=== PATIENT | female | born 1995 | race Caucasian/White ===

== ENCOUNTER 2024-07-29 10:53 | Inpatient (IN) | payer OTHER, SELFPAY ==
[2024-07-29] VITALS (37 sets, daily range): BP systolic 105–132; BP diastolic 61–84; PULSE 60–95; RESP 15–16; TEMP 36.7–37.1; O2SAT 87–100; BMI 43.2
[2024-07-29 10:51] LABS: ROM Internal Control Test YES-OK TO RESULT pt. (Internal QC)
[2024-07-29 10:52] LABS: ROM Patient Test POSITIVE (Negative); Record Kit Lot#, ROM+ K3294
[2024-07-29] MEDS: Lactated Ringers 1,000 ML 50 ML IV (11:50)
[2024-07-29 11:54] LABS: Bedside Glucose 71 mg/dL (74-106)
[2024-07-29 12:17] LABS: Absolute Lymphocyte Count 1.23 X10^3/uL (0.83-4.51); Absolute Neutrophil Count 4.6 X10^3/uL (2.0-7.7); Basophil# 0.04 X10^3/uL; Basophil% 0.6 % (0-1); Eosinophil# 0.03 X10^3/uL; Eosinophils% 0.5 % (0-5); Hematocrit 36.3 % (37-47); Hemoglobin 12.4 g/dL (12.0-15.0); Lymphocyte # 1.23 X10^3/ul (0.83-4.51); Lymphocyte % 19.2 % (19-41); Mean Corp Hgb Conc 34.2 g/dL (32-36); Mean Corpuscular Hgb 32.1 pg (27.0-32.0); Mean Platelet Vol. 11.2 fl (6.2-12.0); Monocyte# 0.51 X10^3/uL; NRBC Flagged by Analyzer 0 % (0-5); Neutrophil # 4.57 X10^3/uL (2.7-7.7); Neutrophil % 71.2 % (47-70); Platelet Count 140 K/mm3 (150-450); RBC Distribution Width CV 14.6 % (11.6-14.6); Red Blood Count 3.86 M/mm3 (4.2-5.4); White Blood Count 6.4 K/mm3 (4.4-11.0)
[2024-07-29] MEDS: Oxytocin 15 Units/NS 250ml 15 UNITS/250 ML IV.SOLN 2 UNITS IV (12:40)
[2024-07-29 13:14] LABS: Bedside Glucose 86 mg/dL (74-106)
[2024-07-29 13:21] LABS: Syphilis Antibodies Nonreactive (Nonreactive)
[2024-07-29 16:56] LABS: Bedside Glucose 73 mg/dL (74-106)
--- NOTE | 2024-07-29 17:13 | PCM.HP.OB ---
HPI - General General Date of Admission: 07/29/24 Date of Service: 07/29/24 Chief Complaint: SROM HPI Narrative KENDRA SWEET, is a 28 F who presents with SROM at 2300 07/28/24. Clear. Few contractions. GDM diet controlled. Fasting 86. 1 cm/70/-2 Maternal Data Information Final ERICA: 08/09/24 Gestational age: 38+4 PFSH PFSH Medical History HPV (human papilloma virus) infection Gestational diabetes Home Medications ?Medication ?Instructions ?Recorded ?Last Taken ?Type aspirin 81 mg chewable tablet (St 1 tab PO DAILY 07/29/24 07/28/24 21:00 History Juan M Aspirin) 1 TAB calcium phosphate,dibasic 77 tab PO 07/29/24 07/28/24 21:00 History mg-vitamin D3 400 unit tablet 1 TAB vits no.130-ferrous fum tab 07/29/24 07/28/24 21:00 History 27 mg iron-folic acid 800 mcg 1 TAB tablet ( Vitamin) Allergy/AdvReac Type Severity Reaction Status Date / Time No Known Allergies Allergy Verified 07/29/24 10:19 Social History Smoking Status: Never smoker History 1 Elective abortions Hx Para 0 Spontaneous abortions Hx # Term Pregnancies Ectopic pregnancies Hx # Pregnancies Multiple births # of living children NST FHR Rate Baby A Baseline: 145 Variability:: Moderate Accelerations:: 15 x 15 Decelerations:: None NST Reactive:: Yes FHR Category:: Category I ROS Constitutional Constitutional: Denies fatigue, fever(s) or malaise Eyes Eyes: Denies change in vision ENT HEENT: Denies dizziness or headache(s) Cardiovascular Cardiovascular: Denies chest pain, dyspnea or lightheadedness Respiratory/Chest Respiratory/Chest: Denies cough or dyspnea Gastrointestinal Gastrointestinal: Denies change in bowel habits Genitourinary Genitourinary: Denies burning urination or genital lesions Integumentary Integumentary: Denies rash Neurologic Neurologic: Denies confusion, dizziness, headache(s), numbness or weakness Vital Signs Vital Signs Vital Signs: 07/29/24 10:25 07/29/24 10:25 07/29/24 10:25 Temperature Temperature Source Temporal Pulse Rate 80 Respiratory Rate Blood Pressure 122/83 H BP Systolic 122 BP Diastolic 83 Pulse Ox 07/29/24 10:25 07/29/24 10:25 07/29/24 14:43 Temperature 98.4 F Temperature Source Temporal Pulse Rate Respiratory Rate 16 Blood Pressure BP Systolic BP Diastolic Pulse Ox 07/29/24 14:43 07/29/24 14:43 07/29/24 14:44 Temperature 98.7 F Temperature Source Pulse Rate Respiratory Rate 16 Blood Pressure 123/72 H BP Systolic 123 BP Diastolic 72 Pulse Ox 07/29/24 14:44 07/29/24 17:10 07/29/24 17:10 Temperature Temperature Source Temporal Pulse Rate 67 Respiratory Rate 16 Blood Pressure BP Systolic BP Diastolic Pulse Ox 07/29/24 17:10 07/29/24 17:11 07/29/24 17:11 Temperature 98.1 F Temperature Source Pulse Rate 74 Respiratory Rate Blood Pressure BP Systolic BP Diastolic Pulse Ox 97 Weight Weight: 110.7 kg Body Mass Index (BMI) 43.2 Physical Exam Const alert and no apparent distress General Appearance: cooperative HEENT normocephalic Resp normal respiratory effort Cardio regular rate GI soft to palpation GI Narrative: gravid, nontender, appropriate for gestational age Extremity no calf tenderness General Extremity: edema Skin no wounds Rashes: No rashes noted Psych activity/motor behavior normal Labs Labs Labs: Blood Type A POSITIVE Antibody Screen NEGATIVE Hct 36.3 % (37-47) L Hgb 12.4 g/dL (12.0-15.0) Syphilis Total Ab Nonreactive (Nonreactive) Assessment & Plan (1) PROM (premature rupture of membranes): (2) GDM, class A1: (3) 38 weeks gestation of : PLAN: Plan Pitocin per protocol
[2024-07-29] MEDS: Lactated Ringers 1,000 ML 999 ML IV (17:36)
[2024-07-29] MEDS: fentaNYL-bupivacaine (epidural) 100 ML BAG EPIDURAL ×2 (18:30→22:40)
[2024-07-29 20:22] LABS: Bedside Glucose 81 mg/dL (74-106)
[2024-07-29 23:57] LABS: Bedside Glucose 78 mg/dL (74-106)
[2024-07-30] VITALS (44 sets, daily range): BP systolic 107–135; BP diastolic 65–85; PULSE 81–110; RESP 15–16; TEMP 36.4–36.8; O2SAT 84–100
[2024-07-30 00:56] LABS: Bedside Glucose 90 mg/dL (74-106)
--- NOTE | 2024-07-30 01:39 | OB.VAGDELI_ITS ---
Assessment & Plan (1) (spontaneous vaginal delivery): (2) GDM, class A1: Maternal Data Information Final ERICA: 07/30/24 Gestational age: 38+4 Vaginal Delivery Maternal Presentation Maternal Presentation: Spontaneous Rupture of Membranes Type of Induction: Pitocin Vaginal Delivery Information Procedure Performed: Spontaneous Vaginal Delivery Surgeon/Practitioner: Marquita Duron Date of Procedure: 07/30/24 Pre-Procedure Diagnosis: PROM Post-Procedure Diagnosis: Type of anesthesia: Epidural Estimated Blood Loss: 250 cc Time of Delivery: 01:14 Findings Description of procedure: Presented with SROM at 1 cm. Clear fluid. Pitocin augmentation. Once complete she pushed for approximately 2 hours to deliver JORDAN. There was a cord around the neck very loose. The anterior and posterior shoulders delivered easily followed by the body. The infant cried upon delivery and placed on maternal abdomen. The cord was clamp and cut at one minute. The placenta delivered with gentle traction. A second degree laceration was repaired with 2-0 Vicryl. All sponge, needle and instrument counts were correct Presentation: Vertex and JORDAN Amniotic Membrane Rupture Type: Spontaneous Amniotic Fluid Description: Other (terminal mec) Placental Delivery Description: Spontaneous Placenta Disposition: [facility] Specimen collected: No Cord Vessel Description: 3 Vessels Cord Entanglement: Around neck x 1, loose Nuchal Cord Compression: Without compression A Gender: Female (1 minute): 8 (5 minute): 9 Delayed Cord Clamping: Yes Executive Administrative Assistant rail car loader: No Post Vaginal Deli Medications given after delivery: IV Pitocin Episiotomy Description: None Laceration: Midline and 2nd degree Complication Complications: No
[2024-07-30] MEDS: Oxytocin 15 Units/NS 250ml 15 UNITS/250 ML IV.SOLN 83 UNITS IV (01:45)
[2024-07-30 02:46] LABS: Bedside Glucose 93 mg/dL (74-106)
[2024-07-30] MEDS: Ondansetron 4 MG/2 ML Vial IV (04:15)
[2024-07-30] MEDS: 0.9% Saline Lock 10 ML Syringe IV (04:15)
--- NOTE | 2024-07-30 04:50 | NURSING ---
pt fainted on toilet. staff assist button was hit and help came. pt awaoke when ammonia packet put up to nose. pt back in bed eating crackers and drinking sprite.
[2024-07-30 08:26] LABS: Bedside Glucose 123 mg/dL (74-106)
[2024-07-30] MEDS: Acetaminophen 500 MG Tablet 1000 MG PO ×2 (09:30→20:05)
[2024-07-30] MEDS: Ibuprofen 600 MG Tablet PO (11:48)
[2024-07-31 02:12] VITALS: BP 110/66; PULSE 76; RESP 16; TEMP 37
[2024-07-31 05:38] LABS: Bedside Glucose 73 mg/dL (74-106)
--- NOTE | 2024-07-31 06:32 | PCM.PN.BLA ---
Progress Note pain well controlled, average lochia, no N/V Physical Exam Const alert and no apparent distress Narrative: Fundus firm, below umbilicus. Assessment & Plan Assessment/Plan (1) (spontaneous vaginal delivery): PLAN: PPD #1 doing well ok for dc/ home today if ok w/ peds
--- NOTE | 2024-07-31 06:33 | PCM.DC ---
Discharge Instructions Diet Discharge Diet: No restrictions DC O2, CPAP, BIPAP needs Home O2 Discharge instructions: No Dressing / Incision May resume sexual activity in: 6 weeks Follow Up Care Please Follow Up With: Marquita Duron MD When: Follow up with our office in 1-2 and 6 weeks or as needed. [phone] Call or send a [employer] message as needed or to schedule Test Results: Test results from this visit will be discussed in further detail at your follow-up appointment, if applicable. Discharge Plan Admission Admit Date/Time: 07/29/24 10:53 Primary Reason for Your Visit: Vaginal delivery Attending Provider: Marquita Duron Primary Care Provider: Care Physician,No Primary Discharge Orders/Prescriptions Prescriptions: Continued Vitamin 27 mg iron- 800 mcg tablet calcium phos,dibas-vitamin D3 77-400 mg-unit tablet PO Discontinued aspirin [St Juan M Aspirin] 81 mg tablet,chewable 1 tab PO DAILY Referrals / Follow Up: Care Physician,No Primary [Primary Care Provider] - Disposition Disposition (needs filled in before D/C Order can be placed): Home, Self Care
[2024-07-31 08:35] VITALS: BP 119/71; PULSE 90
[2024-07-31 10:00] VITALS: BP 119/71; PULSE 90; RESP 16; TEMP 36.7
== END 2024-07-31 13:20 | disposition home or self-care (01) | DRG 807 ==
LOC: WPOUT 11:02 → WP 11:02
PROVIDERS: Admitting Provider Obstetrics & Gynecology; Referring Provider Obstetrics & Gynecology; Visit Provider Obstetrics & Gynecology
DX: O42.02 Full-term premature rupture of membranes, onset of labor within 24 hours of rupture (principal); Z37.0 Single live birth; O24.420 Gestational diabetes mellitus in childbirth, diet controlled; O69.81X0 Labor and delivery complicated by cord around neck, without compression, not applicable or unspecified; O77.0 Labor and delivery complicated by meconium in amniotic fluid; O70.1 Second degree perineal laceration during delivery; Z3A.38 38 weeks gestation of pregnancy
CPT/HCPCS: 59025; 59050; 82962; 84112; 85025; 86780; 86850; 86900; 86901; 99221; A4216; G0378; J2405

== ENCOUNTER 2024-08-15 15:34 | Day surgery (SDC) | payer OTHER, SELFPAY ==
[2024-08-15] VITALS (19 sets, daily range): BP systolic 112–138; BP diastolic 80–110; PULSE 87–117; RESP 14–22; TEMP 36.3–37; O2SAT 96–98; BMI 40.6
--- NOTE | 2024-08-15 16:11 | EDS_ITS ---
HPI <LATRELL Stack - Last Filed: 08/15/24 19:58> HPI - Female History of Present Illness Chief Complaint: Vag Bleeding Narrative Narrative: Patient presenting today with abnormal vaginal bleeding that started about an hour and a half prior to arrival. She is G1, P1, she gave on 07/30/2024. She reports that she was in labor about 2 hours, she gave vaginally. She did have a small laceration that was repaired. She is currently breast-feeding. She did have mild bleeding that she had to wear a pad/diaper for but this did eventually turned into yellow/white-colored discharge that subsided about 3 days ago. She reports that today she stood up and she had a sudden onset of bright red vaginal bleeding, she placed a diaper on and noticed several large looking clots, prompting her to come in for evaluation. She denies fevers, chills, abdominal pain, nausea, and vomiting. PFSH <LATRELL Stack - Last Filed: 08/15/24 19:58> PFSH Medical History HPV (human papilloma virus) infection Gestational diabetes Home Medications ?Medication ?Instructions ?Recorded ?Last Taken ?Type calcium phosphate,dibasic 77 tab PO 07/29/24 07/28/24 21:00 History mg-vitamin D3 400 unit tablet 1 TAB vits no.130-ferrous fum tab 07/29/24 07/28/24 21:00 History 27 mg iron-folic acid 800 mcg 1 TAB tablet ( Vitamin) Allergy/AdvReac Type Severity Reaction Status Date / Time No Known Allergies Allergy Verified 08/15/24 15:37 Social History Smoking Status: Never smoker ROS <LATRELL Stack - Last Filed: 08/15/24 19:58> ROS ED Constitutional Constitutional ED: Denies chills or fever(s) Cardiovascular Cardiovascular: Denies chest pain Respiratory/Chest Respiratory/Chest: Denies dyspnea Gastrointestinal Gastrointestinal: Denies abdominal pain, nausea or vomiting Genitourinary Genitourinary ED: Denies dysuria or urinary urgency Musculoskeletal Musculoskeletal: Denies arthralgias or myalgias Integumentary Denies rash Neurologic Neurologic: Reports weakness EXAM <LATRELL Stack - Last Filed: 08/15/24 19:58> Physical Exam Const Vital Signs: 08/15/24 15:35 08/15/24 17:34 08/15/24 17:38 Temperature 97.4 F L 98.5 F Temperature Source Temporal Oral Pulse Rate 117 H 101 H 102 H Respiratory Rate 16 17 18 Blood Pressure 138/99 H 112/80 Blood Pressure Mean 112 90 Blood Pressure Source Blood Pressure Position Blood Pressure Location Pulse Ox 97 97 Oxygen Delivery Method Room Air Room Air 08/15/24 17:45 08/15/24 18:00 08/15/24 18:15 Temperature Temperature Source Pulse Rate 101 H 100 95 Respiratory Rate 19 H 16 19 H Blood Pressure 118/96 H 121/88 H 122/90 H Blood Pressure Mean 101 99 98 Blood Pressure Source Blood Pressure Position Blood Pressure Location Pulse Ox Oxygen Delivery Method 08/15/24 18:30 08/15/24 18:45 08/15/24 19:00 Temperature Temperature Source Pulse Rate 91 104 H 91 Respiratory Rate 19 H 22 H 20 H Blood Pressure 123/80 H 127/110 H 113/99 H Blood Pressure Mean 94 117 105 Blood Pressure Source Blood Pressure Position Blood Pressure Location Pulse Ox Oxygen Delivery Method 08/15/24 19:27 08/15/24 19:32 Temperature 98.3 F Temperature Source Pulse Rate 105 H 97 Respiratory Rate 21 H 14 Blood Pressure 125/83 H 132/94 H Blood Pressure Mean 97 106 Blood Pressure Source Monitor Blood Pressure Position Semi-Fowlers Blood Pressure Location Right Arm Pulse Ox 96 98 Oxygen Delivery Method Room Air Positive well nourished, well developed and no apparent distress General Appearance ED: well developed HEENT Reports normocephalic and head/scalp atraumatic Mouth ED: Yes moist mucous membranes normal Eyes PERRL and EOMs intact bilaterally Neck full ROM and supple Chest Wall inspection of chest normal Resp normal respiratory effort and clear to auscultation bilaterally Cardio regular rate and regular rhythm GI soft to palpation, non-tender, non-distended and no masses Back/Spine normal ROM and normal to inspection Extremity normal to inspection and full ROM Neuro oriented x3, CN's II-XII intact bilaterally, moves all extremities, no focal motor deficits and no sensory deficits noted Sensorium / Orientation: awake and alert Psych mental status grossly normal and thought process normal Skin no rashes or lesions noted and no wounds <Dr. Ramirez Buchanan DO - Last Filed: 08/15/24 21:12> Physical Exam Const Vital Signs: 08/15/24 15:35 08/15/24 17:34 08/15/24 17:38 Temperature 97.4 F L 98.5 F Temperature Source Temporal Oral Pulse Rate 117 H 101 H 102 H Respiratory Rate 16 17 18 Blood Pressure 138/99 H 112/80 Blood Pressure Mean 112 90 Blood Pressure Source Blood Pressure Position Blood Pressure Location Pulse Ox 97 97 Oxygen Delivery Method Room Air Room Air 08/15/24 17:45 08/15/24 18:00 08/15/24 18:15 Temperature Temperature Source Pulse Rate 101 H 100 95 Respiratory Rate 19 H 16 19 H Blood Pressure 118/96 H 121/88 H 122/90 H Blood Pressure Mean 101 99 98 Blood Pressure Source Blood Pressure Position Blood Pressure Location Pulse Ox Oxygen Delivery Method 08/15/24 18:30 08/15/24 18:45 08/15/24 19:00 Temperature Temperature Source Pulse Rate 91 104 H 91 Respiratory Rate 19 H 22 H 20 H Blood Pressure 123/80 H 127/110 H 113/99 H Blood Pressure Mean 94 117 105 Blood Pressure Source Blood Pressure Position Blood Pressure Location Pulse Ox Oxygen Delivery Method 08/15/24 19:27 08/15/24 19:32 Temperature 98.3 F Temperature Source Pulse Rate 105 H 97 Respiratory Rate 21 H 14 Blood Pressure 125/83 H 132/94 H Blood Pressure Mean 97 106 Blood Pressure Source Monitor Blood Pressure Position Semi-Fowlers Blood Pressure Location Right Arm Pulse Ox 96 98 Oxygen Delivery Method Room Air MDM <LATRELL Stack - Last Filed: 08/15/24 19:58> [facility] MDM Narrative Medical decision making narrative: Patient presenting due to abdominal vaginal bleeding that started about an hour and a half ago. The nurse did change her pad which was saturated here, patient placed it about an hour prior, there were 2 golf ball sized clots on the pad according to the nurse. She is slightly tachycardic here, she will be given IV fluids. Transvaginal ultrasound will be obtained as well as basic labs to assess for leukocytosis, anemia, electrolyte abnormality, PALMER. Hemoglobin 11.8 which is slightly low from previous labs but that is to be expected given previous labs were obtained prior to giving . No leukocytosis, CMP largely unremarkable aside from an ALT of 69. Transvaginal ultrasound shows markedly thickened and heterogeneous endometrium which is consistent for retained products of conception. I spoke with Dr. Rolon, she came and evaluated the patient and offered suction D&C, patient wishes to proceed with this procedure. She will go straight to the OR. OB did order antibiotics for her. Patient will go to the OR in stable condition. Lab Data Attestation: I reviewed the patient's lab results. Lab results narrative: Hemoglobin 11 point Labs: Laboratory Results - last 24 hr 08/15/24 16:15 WBC 7.6 RBC 3.80 L Hgb 11.8 L Hct 34.9 L MCV 91.8 MCH 31.1 MCHC 33.8 RDW Std Deviation 43.8 RDW Coeff of Gricelda 13.1 Plt Count 242 MPV 11.1 Immature Gran % (Auto) 0.400 Neut % (Auto) 57.5 Lymph % (Auto) 34.1 Randall % (Auto) 5.1 Eos % (Auto) 2.4 Baso % (Auto) 0.5 Absolute Neuts (auto) 4.4 Absolute Lymphs (auto) 2.59 Nucleated RBC % 0 Sodium 141 Potassium 4.0 Chloride 108 Carbon Dioxide 21.3 Anion Gap 12 BUN 11 Creatinine 0.60 L Estim Creat Clear Calc 162.40 Est GFR (MDRD) Non-Af 126 BUN/Creatinine Ratio 18.6 Glucose 105 H Calcium 8.7 Total Bilirubin 0.27 AST 31 ALT 69 H Alkaline Phosphatase 79 Total Protein 6.4 Albumin 3.8 Globulin 2.6 Albumin/Globulin Ratio 1.4 Radiography Diagnostic Testing: Clinical Impression(s) from Imaging Studies Pelvis Ultrasound 08/15/24 16:11 IMPRESSION: 1. Markedly thickened and heterogeneous endometrium with mild associated vascularity, findings which are suspicious for retained products of conception. Recommend clinical follow-up, at a minimum to include serial beta HCG and follow-up pelvic ultrasound. 2. Enhanced myometrial vascularity as can be seen in recent . This may also be associated with prolonged bleeding. 3. Additional description as above. Reading Location: [id number] <Dr. Ramirez Buchanan, DO - Last Filed: 08/15/24 21:12> MDM Lab Data Labs: Laboratory Results - last 24 hr 08/15/24 16:15 WBC 7.6 RBC 3.80 L Hgb 11.8 L Hct 34.9 L MCV 91.8 MCH 31.1 MCHC 33.8 RDW Std Deviation 43.8 RDW Coeff of Gricelda 13.1 Plt Count 242 MPV 11.1 Immature Gran % (Auto) 0.400 Neut % (Auto) 57.5 Lymph % (Auto) 34.1 Randall % (Auto) 5.1 Eos % (Auto) 2.4 Baso % (Auto) 0.5 Absolute Neuts (auto) 4.4 Absolute Lymphs (auto) 2.59 Nucleated RBC % 0 Sodium 141 Potassium 4.0 Chloride 108 Carbon Dioxide 21.3 Anion Gap 12 BUN 11 Creatinine 0.60 L Estim Creat Clear Calc 162.40 Est GFR (MDRD) Non-Af 126 BUN/Creatinine Ratio 18.6 Glucose 105 H Calcium 8.7 Total Bilirubin 0.27 AST 31 ALT 69 H Alkaline Phosphatase 79 Total Protein 6.4 Albumin 3.8 Globulin 2.6 Albumin/Globulin Ratio 1.4 Radiography Diagnostic Testing: Clinical Impression(s) from Imaging Studies Pelvis Ultrasound 08/15/24 16:11 IMPRESSION: 1. Markedly thickened and heterogeneous endometrium with mild associated vascularity, findings which are suspicious for retained products of conception. Recommend clinical follow-up, at a minimum to include serial beta HCG and follow-up pelvic ultrasound. 2. Enhanced myometrial vascularity as can be seen in recent . This may also be associated with prolonged bleeding. 3. Additional description as above. Reading Location: [id number] Treatment and Re-Evaluation Narrative: I have personally performed a face to face assessment of the patient and have reviewed the ADRIÁN Note. I performed a substantive portion of the visit including all aspects of the following. My plascencia findings include: History: Patient presents with vaginal bleeding that began today. Patient states it began rather suddenly. Patient is recently . Patient states she has been passing clots and has been having heavy bleeding. Patient states it is worse with standing. Patient admits to some lower abdominal cramping. Patient admits to some nausea but denies any vomiting. Patient denies any dysuria or frequency. Exam: Vital signs are stable except for mild tachycardia 117. Patient is afebrile. Patient is in no acute distress. Oral mucosa is pink and moist. Neck is supple. Trachea is midline. There is no JVD. Heart was regular and tachycardic. Lungs are clear and equal bilaterally. Abdomen is soft. Bowel sounds are normal. There is mild suprapubic tenderness. There is no rebound or guarding noted. Cranial nerves II through XII are intact. There are no focal motor or sensory deficits noted. Medical Decision Making: Differential diagnosis includes retained products of conception, bleeding, anemia, and electrolyte abnormality. CBC will be obtained to assess for leukocytosis and anemia. Comprehensive metabolic pro file will be obtained to assess for hepatic function, renal function, and electrolyte abnormality. Pelvic ultrasound will be obtained to assess for retained products of conception. Patient was given IV fluids. CBC was reviewed. There is a mild anemia with a hemoglobin of 11.8 and hematocrit 34.9. Comprehensive metabolic profile was reviewed and was essentially within normal limits. Pelvic ultrasound was obtained. There is thickened and heterogeneous endometrium with mild associated vascularity which may be suspicious for retained products of conception. This was interpreted by the radiologist and was also independently reviewed by myself. Patient was advised of the findings. Case was discussed with Dr. Kitty richardson from [employer]. She was in to evaluate the patient and will take the patient to the OR for D&C. Patient and family understand and are agreeable with the plan. All questions were answered. Discharge Plan Triage Chief Complaint: Vag Bleeding ED Midlevel Provider: Sherlyn Gardner ED Provider: Ramirez Buchanan Dx/Rx/DC Orders Prescriptions: No Action Vitamin 27 mg iron- 800 mcg tablet calcium phos,dibas-vitamin D3 77-400 mg-unit tablet PO Primary Care Provider: Care Physician,No Primary Referrals: Care Physician,No Primary [Primary Care Provider] - Print Language: Chinese
--- NOTE | 2024-08-15 16:11 | US_ITS ---
PROCEDURE: PELVIC (NON ) ([facility]), 08/15/2024 REASON FOR EXAM: ABNORMAL VAGINAL BLEEDING TECHNIQUE: Grayscale and color/spectral doppler transabdominal pelvic ultrasound was performed. COMPARISON: None FINDINGS: Uterus: 13.3 x 8.3 x 6.6 cm, Anteverted. Unremarkable echotexture. Enhanced myometrial vascularity. Endometrium: 27 mm, heterogeneous with mild associated vascularity on a single image. Cervix: Unremarkable. Right ovary: 2.9 x 2.6 x 1.5 cm (estimated volume 5.9 mL), grossly unremarkable transabdominal appearance. Nondiagnostic Doppler evaluation. Left ovary: 2.6 x 1.9 x 1.6 cm (estimated volume 4.2 mL), grossly unremarkable transabdominal appearance. Normal low resistance arterial waveforms. Free fluid: None visualized. Other: Estimated bladder volume 133 mL. US/Pelvic (Non ) IMPRESSION: 1. Markedly thickened and heterogeneous endometrium with mild associated vascul arity, findings which are suspicious for retained products of conception. Recommend clinical follow-up, at a minimum to include serial beta HCG and follow-up pelvic ultrasound. 2. Enhanced myometrial vascularity as can be seen in recent . This ma y also be associated with prolonged bleeding. 3. Additional description as above. Reading Location: [id number]
[2024-08-15] MEDS: 0.9% Normal Saline (1000mL) 1,000 ML 999 ML IV (16:25)
[2024-08-15 16:32] LABS: Absolute Lymphocyte Count 2.59 X10^3/uL (0.83-4.51); Absolute Neutrophil Count 4.4 X10^3/uL (2.0-7.7); Basophil# 0.04 X10^3/uL; Basophil% 0.5 % (0-1); Eosinophil# 0.18 X10^3/uL; Eosinophils% 2.4 % (0-5); Hematocrit 34.9 % (37-47); Hemoglobin 11.8 g/dL (12.0-15.0); Lymphocyte # 2.59 X10^3/ul (0.83-4.51); Lymphocyte % 34.1 % (19-41); Mean Corp Hgb Conc 33.8 g/dL (32-36); Mean Corpuscular Hgb 31.1 pg (27.0-32.0); Mean Corpuscular Volume 91.8 fL (81-99); Mean Platelet Vol. 11.1 fl (6.2-12.0); Monocyte# 0.39 X10^3/uL; Monocyte% 5.1 % (0-10); NRBC Flagged by Analyzer 0 % (0-5); Neutrophil # 4.36 X10^3/uL (2.7-7.7); Neutrophil % 57.5 % (47-70); Platelet Count 242 K/mm3 (150-450); RBC Distribution Width CV 13.1 % (11.6-14.6); RBC Distribution Width SD 43.8 fl (35.1-43.9); White Blood Count 7.6 K/mm3 (4.4-11.0)
[2024-08-15 16:56] LABS: ALB/GLOB Ratio 1.4 RATIO (0.9-2.4); AST(SGOT) 31 U/L (<=31); Alanine Aminotransfer ALT/SGPT 69 U/L (<=34); Albumin, Serum 3.8 g/dL (3.5-5.0); Alkaline Phosphatase 79 U/L (35-104); Anion Gap 12 (5-15); BUN 11 mg/dL (4-19); BUN/Creat Ratio 18.6 RATIO (10-20); Calcium,Total 8.7 mg/dL (7.6-11.0); Carbon Dioxide 21.3 mmol/L (21.0-32.0); Chloride 108 mmol/L (98-108); EST Glomerular Filtration Rate 126 (>60); Globulin 2.6 g/dL (2.2-4.2); Glucose 105 mg/dL (70-99); Protein, Total 6.4 g/dL (5.9-8.4); Sodium Level 141 mmol/L (133-145); Total Bilirubin 0.27 mg/dL (0.00-1.30)
--- NOTE | 2024-08-15 19:48 | PCM.HP.OB ---
HPI - General General Date of Admission: 08/15/24 Date of Service: 08/15/24 Chief Complaint: vaginal bleeding HPI Narrative KENDRA SWEET, is a 28 F who presents with heavy vaginal bleeding that saturate through clothing at home. She is 2 weeks from an uncomplicated vaginal delivery. She denies lightheadedness, dizziness, CP, SOB. She offers no other complaints other than the sudden onset of heavy bleeding. No fevers, chills, malaise, abdominal pain. PFSH PFSH Medical History HPV (human papilloma virus) infection Gestational diabetes Home Medications ?Medication ?Instructions ?Recorded ?Last Taken ?Type calcium phosphate,dibasic 77 1 tab PO DAILY 07/29/24 07/28/24 21:00 History mg-vitamin D3 400 unit tablet 1 TAB vits no.130-ferrous fum 1 tab PO DAILY 07/29/24 07/28/24 21:00 History 27 mg iron-folic acid 800 mcg 1 TAB tablet ( Vitamin) Allergy/AdvReac Type Severity Reaction Status Date / Time No Known Allergies Allergy Verified 08/15/24 15:37 Social History Smoking Status: Never smoker History 1 Elective abortions Hx Para 0 Spontaneous abortions Hx # Term Pregnancies Ectopic pregnancies Hx # Pregnancies Multiple births # of living children Vital Signs Vital Signs Vital Signs: 08/15/24 15:35 08/15/24 17:34 08/15/24 17:38 Temperature 97.4 F L 98.5 F Temperature Source Temporal Oral Pulse Rate 117 H 101 H 102 H Respiratory Rate 16 17 18 Blood Pressure 138/99 H 112/80 Blood Pressure Mean 112 90 Blood Pressure Source Blood Pressure Position Blood Pressure Location Pulse Ox 97 97 Oxygen Delivery Method Room Air Room Air 08/15/24 17:45 08/15/24 18:00 08/15/24 18:15 Temperature Temperature Source Pulse Rate 101 H 100 95 Respiratory Rate 19 H 16 19 H Blood Pressure 118/96 H 121/88 H 122/90 H Blood Pressure Mean 101 99 98 Blood Pressure Source Blood Pressure Position Blood Pressure Location Pulse Ox Oxygen Delivery Method 08/15/24 18:30 08/15/24 18:45 04/09/25 19:00 Temperature Temperature Source Pulse Rate 91 104 H 91 Respiratory Rate 19 H 22 H 20 H Blood Pressure 123/80 H 127/110 H 113/99 H Blood Pressure Mean 94 117 105 Blood Pressure Source Blood Pressure Position Blood Pressure Location Pulse Ox Oxygen Delivery Method 08/15/24 19:27 08/15/24 19:32 Temperature 98.3 F Temperature Source Pulse Rate 105 H 97 Respiratory Rate 21 H 14 Blood Pressure 125/83 H 132/94 H Blood Pressure Mean 97 106 Blood Pressure Source Monitor Blood Pressure Position Semi-Fowlers Blood Pressure Location Right Arm Pulse Ox 96 98 Oxygen Delivery Method Room Air Weight Weight: 229 lb 4.492 oz Body Mass Index (BMI) 40.6 Physical Exam Const alert and no apparent distress General Appearance: comfortable HEENT normocephalic Resp normal respiratory effort GI soft to palpation, non-tender and non-distended Narrative: Patient filled a large pad with blood and golf ball sized clots in the ER. Currently still a slow constant trickle of dark red blood onto the pad with fundal pressure. Extremity normal to inspection Labs Labs Labs: Blood Type A POSITIVE Antibody Screen NEGATIVE Hct 34.9 % (37-47) L Hgb 11.8 g/dL (12.0-15.0) L Syphilis Total Ab Nonreactive (Nonreactive) Assessment & Plan (1) state: (2) Retained placenta parts or membranes: PLAN: Patient with heavy vaginal bleeding at home. Tachycardic in the ER. Pelvic US images reviewed and concern for retained placenta parts or membranes. Discussed r/b/a suction D&C and patient desires to proceed. Consent signed. Doxycycline ordered pre op. Discussed with patient possible d/c home tonight, and possible overnight stay depending on surgery and bleeding. (3) Status post normal vaginal delivery: (4) Vaginal bleeding:
--- NOTE | 2024-08-15 20:00 | PLAC_PTH ---
PATIENT: KENDRA SWEET LOC: [facility] – [place] U#:[id number] AGE/SX: 28/F ROOM: RE08/15/[address]: Dr. Marquita Duron MD : 1995 BED: DIS: 08/15/2024 SPEC #: [id number] RECD: 08/16/24 09:04 STATUS: SHO SHAGUFTA #: [id number] FRANDY: 08/15/24 20:[address]: Marquita Duron DEPT: SURGICAL PATHOLOGY RECD BY: Froy Blake ENTERED: 08/16/24 09:04 SP TYPE: PLACENTA OTHR DR: No Primary Care Phys Tissues: A - Placenta, NOS Procedures: Surgery Specimen Level V HEADER OPERATION: Dilation and curettage, suction PRE-OP DIAGNOSIS: Retained placenta TISSUE SUBMITTED: A- Retained placenta MICROSCOPIC DIAGNOSIS A. Retained placenta, dilation and curettage: * Inflamed and degenerating decidua with degenerating chorionic villi and organizing blood clot consistent with retained products of conception * Fragments of proliferative endometrium with areas of stromal breakdown MICROSCOPIC DESCRIPTION Slides are reviewed. GROSS DESCRIPTION A. Received in formalin in a container labeled with the patient's name, date of , and retained placenta are multiple red-brown fragments of blood clot material admixed with barnes soft tissue measuring 8.0 x 6.5 x 2.5 cm in aggregate. The specimen is searched, and no distinct placental fragments are grossly recognized. Investigator Internal Revenue sections are submitted in A1-3. [facility] 08-16-2024 CPT:62085
--- NOTE | 2024-08-15 20:00 | PCM.PRE.AN2 ---
ASA Classification* ASA Classification ASA Classification: 3 Assessment & Plan Anesthesia* Anesthesia Assessment Anesthesia Assessment: Discussed sedation and/or anesthesia options, risks, benefits, and alternatives with patient/parents/legal guardian/POA. Questions invited. The patient/parents/legal guardian/POA seems to understand and agrees to proceed with anesthesia plan. Reviewed the physical assessment, medical history, allergy history and patient home medications list prior to surgery/procedure/anesthetic and documented any changes. Performed airway and anesthesia risk assessments. Anesthesia Type Anesthesia Type: MAC History Source History Obtained from:: Patient and Chart Anesthesia Focused Assessment* Temperature: 98.3 F Pulse Rate: 97 Blood Pressure: 132/94 Respiratory Rate: 14 Pulse Ox: 98 Oxygen Delivery Method: Room Air Airway Assessment Mouth opens: >3 cm Mallampati Score: II Teeth Condition: Intact Neck Range of motion (ROM): Full ROM Focused Labs Anesthesia Preop lab: CBC WBC 7.6 K/mm3 (4.4-11.0) 08/15/24 16:15 08/15/24 RBC 3.80 M/mm3 (4.2-5.4) L 08/15/24 16:15 08/15/24 Hgb 11.8 g/dL (12.0-15.0) L 08/15/24 16:15 08/15/24 Hct 34.9 % (37-47) L 08/15/24 16:15 08/15/24 Plt Count 242 K/mm3 (150-450) 08/15/24 16:15 08/15/24 CHEMISTRY Potassium 4.0 mmol/L (3.3-5.1) 08/15/24 16:15 08/15/24 Sodium 141 mmol/L (133-145) 08/15/24 16:15 08/15/24 BUN 11 mg/dL (4-19) 08/15/24 16:15 08/15/24 Creatinine 0.60 mg/dL (0.70-1.20) L 08/15/24 16:15 08/15/24 Glucose 105 mg/dL (70-99) H 08/15/24 16:15 08/15/24 POC Glucose 73 mg/dL (74-106) L 07/31/24 05:20 07/31/24 COAG Pre-Assessment Diagnosis/Proposed Procedure Planned Operative Procedure(s): Suction D and C Anesthesia History 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 When Was Last Pacemaker Check QUESTION #4 FULL TEXT: You/Your Family Experience fever (hyperthermia) with Anesthesia Any additional information?: No Last Oral Intake Last Oral intake: Last Oral Intake NPO since 14:00 08/15/24 19:27 Meds taken in AM with sips of water? Meds patient instructed to take am of surgery Any additional information?: No PONV PONV - erection shop supervisor: PONV - erection shop supervisor Female HX of Motion Sickness HX of N/V After Surgery Non-Smoker Duration of Surgery greater than 60 minutes Number of Risk Factors PONV Score Any additional information?: No Height & Weight Height & Weight: Anesthesia: Height & Weight Height 5 ft 3 in 08/15/24 19:27 Weight: 104 kg 08/15/24 19:27 Body Mass Index (BMI) 40.6 08/15/24 19:27 Respiratory Assessment Respiratory Assessment - erection shop supervisor: Respiratory Tract Infection Hx - erection shop supervisor Hx Respiratory Tract Infection No 08/15/24 19:27 Any additional information?: No STOP Sleep Apnea STOP Sleep Apnea - erection shop supervisor: STOP Sleep Apnea - erection shop supervisor Hx Hypertension No 08/15/24 19:27 Hx Sleep Apnea No 08/15/24 19:27 CPAP BIPAP Do you snore loudly (louder No 08/15/24 19:27 than talking or can be heard Do you often feel tired/ No 08/15/24 19:27 fatigued/ sleepy during daytime? Has anyone observed you stop No 08/15/24 19:27 breathing during sleep? STOP Results Negative 08/15/24 19:27 QUESTION #5 FULL TEXT : Do you snore loudly (louder than talking or can be heard through closed doors)? 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 Specify any problems Hx of Preganancy in last 3 Months Nurse Filling Out Transfusion & Questions: Date: Time: Patient unable to answer at this time (ie. confused, unrespo Any additional information?: No /Reproduction History /Reproductive History - erection shop supervisor: /Reproductive Hx- erection shop supervisor Hx Now No 08/15/24 19:27 Gestational Age (in weeks): EDC: Hx 2 08/15/24 16:27 Hx Para Hx Section SAB Yes 08/15/24 19:27 Any additional information?: No PFSH Medical History HPV (human papilloma virus) infection Gestational diabetes Home Medications ?Medication ?Instructions ?Recorded ?Last Taken ?Type calcium phosphate,dibasic 77 1 tab PO DAILY 07/29/24 07/28/24 21:00 History mg-vitamin D3 400 unit tablet 1 TAB vits no.130-ferrous fum 1 tab PO DAILY 07/29/24 07/28/24 21:00 History 27 mg iron-folic acid 800 mcg 1 TAB tablet ( Vitamin) Allergy/AdvReac Type Severity Reaction Status Date / Time No Known Allergies Allergy Verified 08/15/24 15:37 Social History Smoking Status: Never smoker Review of Systems (Anesthesia) ROS Narrative System reviewed and no additional complaints, except as documented.
[2024-08-15] MEDS: miSOPROStol 200 MCG Tablet (20:43)
[2024-08-15] MEDS: DOXYCYCLINE IV (21:01)
[2024-08-15] MEDS: SODIUM CHLORIDE IV (21:01)
--- NOTE | 2024-08-15 21:04 | PCM.POST.ANE ---
Anesthesia: Postop Eval I Current Vital Signs Temperature: 98.1 F Pulse Rate: 104 Blood Pressure: 130/91 Respiratory Rate: 20 Pulse Ox: 98 Assessment Airway patent: Yes Spontaneous unlabored respirations: Yes nausea: No Vomiting: No Anesthesia Complication: No Fluid Hydration Crystalloid volume administer (ml): 800 Total IV fluid infused: 800 Progress Note Anesthesia document: Postop Eval 1 completed: Yes
--- NOTE | 2024-08-15 21:12 | POSTOPAN2_ITS ---
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 Spontaneous unlabored Yes 08/15/24 21:04 SCHOOL LUNCH MONITOR.CSIR respirations Mental status nausea No 08/15/24 21:04 SCHOOL LUNCH MONITOR.CSIR Vomiting No 08/15/24 21:04 SCHOOL LUNCH MONITOR.CSIR Anesthesia Postop Eval I: Fluid Summary Crystalloid volume administer 800 08/15/24 21:04 SCHOOL LUNCH MONITOR.CSIR (ml) Colloids volume administered ( ml) Blood Product volume administered (ml) Total IV fluid infused 800 08/15/24 21:04 SCHOOL LUNCH MONITOR.CSIR Anesthesia Postop Eval I: Summary Notes Anesthesia Complication No 08/15/24 21:04 SCHOOL LUNCH [email or web address].CSIR Anesthesia Complication Comment: Post-operative progress note Anesthesia: Postop Eval II Evaluation Mental status: Awake Pain Level: 4 nausea: No Vomiting: No
--- NOTE | 2024-08-15 21:12 | PCM.POSTANE2 ---
Anesthesia Postop Eval I Sum Postop Eval Completion status Anesthesia document: Postop Eval 1 completed: Yes Anesthesia Postop Eval I Summary Anesthesia Postop Eval I Summary: Anesthesia Postop Eval I: Assessment Summary Airway patent Yes 08/15/24 21:04 [email or web address] [email or web address] Spontaneous unlabored Yes 08/15/24 21:04 HISTOLOGY SUPERVISOR.CSIR respirations Mental status nausea No 08/15/24 21:04 HISTOLOGY SUPERVISOR.CSIR Vomiting No 08/15/24 21:04 HISTOLOGY SUPERVISOR.CSIR Anesthesia Postop Eval I: Fluid Summary Crystalloid volume administer 800 08/15/24 21:04 HISTOLOGY SUPERVISOR.CSIR (ml) Colloids volume administered ( ml) Blood Product volume administered (ml) Total IV fluid infused 800 08/15/24 21:04 HISTOLOGY SUPERVISOR.CSIR Anesthesia Postop Eval I: Summary Notes Anesthesia Complication No 08/15/24 21:04 HISTOLOGY SUPERVISOR.CSIR Anesthesia Complication Comment: Post-operative progress note Anesthesia: Postop Eval II Evaluation Mental status: Awake Pain Level: 4 nausea: No Vomiting: No
--- NOTE | 2024-08-15 21:12 | PCM.DC ---
Discharge Instructions Diet Discharge Diet: No restrictions DC O2, CPAP, BIPAP needs Home O2 Discharge instructions: No Dressing / Incision Discharge Activity: May Drive (Once you are more than 24 hours out from surgery) and May Shower (Once you are more than 24 hours out from surgery) May resume sexual activity in: 4 weeks (Nothing in the vagina) Ice area for (Minutes): 15 Weight Bearing Status: Weight bearing as tolerated Lifting Restrictions: Nothing heavier than baby Dressing / Incision Call your doctor if you observe: Fever of 101 or Higher, Numbness or Tingling, Using more than 1 pad per hour, Shortness of breath, Dizziness, Swelling in the ankles, Chest pain, Increased palpitations (irregular heartbeat), Calf discomfort and Uncontrolled pain Cleanse incision/area with: Soap & Water Follow Up Care Please Follow Up With: Kathy Rolon DO When: 1 week Test Results: Test results from this visit will be discussed in further detail at your follow-up appointment, if applicable. Discharge Plan Admission Primary Reason for Your Visit: D&C Attending Provider: Marquita Duron Primary Care Provider: Care Physician,Alicia Primary Instructions Print Language: Vietnamese Discharge Orders/Prescriptions Prescriptions: Continued Vitamin 27 mg iron- 800 mcg tablet 1 tab PO DAILY calcium phos,dibas-vitamin D3 77-400 mg-unit tablet 1 tab PO DAILY Referrals / Follow Up: Care Physician,No Primary [Primary Care Provider] - Disposition Disposition (needs filled in before D/C Order can be placed): Home, Self Care
--- NOTE | 2024-08-15 21:13 | PCM.OPRPT ---
Problems Associated Problem List Diagnoses (1) Vaginal bleeding: (2) Status post normal vaginal delivery: (3) Retained placenta parts or membranes: (4) state: Operative Report (Standard) Operative Information Date of Procedure: 08/15/24 Pre-Operative Diagnosis: Retained placental tissue Post-Operative Diagnosis: As above Surgery/Procedure Performed: Suction D&C under ultrasound guidance senior water resources engineer: No Type of Anesthesia: MAC RN Documented Start/Stop Times: Operation Date: 08/15/24 20:00 Case Time Anesthesia Start 08/15/24 20:06 Into Room 08/15/24 20:06 Procedure Start 08/15/24 20:28 Procedure End 08/15/24 21:00 Anesthesia End 08/15/24 21:02 Out of Room 08/15/24 21:02 Into Recovery 08/15/24 21:03 Procedure Start Time: 20:28 Procedure Stop Time: 21:00 Select all DRAINS/GRAFTS/IMPLANTS that apply: None Special Medications: None Estimated Blood Loss: 100 mL Fluids Replaced: 800 mL Specimen collected: Yes Description of specimen(s) removed: Retained placental tissue Description of surgery: The patient was taken to the operating room where MAC anesthesia was induced and found to be adequate. She was prepped and draped in the dorsal lithotomy position using yellowfin stirrups. A weighted speculum was placed in the vagina to expose the cervix. The anterior lip of the cervix was grasped with a single-tooth tenaculum. The cervix was already dilated to accommodate a size 12 suction curettage. The size 12 suction curettage was used for several passes to remove retained placental tissue and/or membranes under ultrasound guidance until not further tissue was noted. A sharp curettage was then performed along all 4 uterine emery for a good uterine cry. An ultrasound was performed transabdominally at end of the procedure confirming no evidence of retained placental tissue remaining within the uterus, and a thin endometrial stripe was noted. Bleeding was scant at the end of the procedure. All instruments were removed from the vagina. A vaginal sweep was performed. Sponge counts were correct. The patient was taken to the recovery room in stable condition. Surgical Findings: Enlarged 12-13 week sized uterus with clots present at the external cervical os. Vaginal mucosa normal appearing. Second degree perineal laceration healing well and reapproximated without bleeding or drainage Complications Complications: No Admit VTE Documentation VTE Present on Admission: No VTE Mechan Device Prophylaxis: SCD's
[2024-08-15] MEDS: Ibuprofen 400 MG Tablet 800 MG PO (21:39)
== END 2024-08-15 22:13 | disposition home or self-care (01) ==
LOC: ED 16:20 → SDC 19:03 → AC 19:04
PROVIDERS: Obstetrics & Gynecology; Physician Assistant; Emergency Provider Emergency Medicine; Referring Provider Obstetrics & Gynecology; Visit Provider Obstetrics & Gynecology
PROC: (CPT 59160; principal; 2024-08-15 19:45)
DX: O72.2 Delayed and secondary postpartum hemorrhage (principal); Z3A.00 Weeks of gestation of pregnancy not specified
CPT/HCPCS: 59160; 00940; 76856; 80053; 85025; 88307; 99284; A4216; J2405